=== PATIENT | female | born 1995 | race American Indian/Alaskan Native ===

== ENCOUNTER 2021-03-20 22:14 | Emergency (ER) | payer OTHER, MEDICAID ==
[2021-03-21 00:03] VITALS: BP 106/78
[2021-03-21] MEDS ORDERED: ACETAMINOPHEN 500 MG TAB PO ONE (00:08)
[2021-03-21] MEDS ORDERED: IBUPROFEN 600 MG TAB PO ONE (00:08)
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
== END 2021-03-21 01:37 | disposition home or self-care (01) ==
LOC: ED 22:14
DX: S29.012A Strain of muscle and tendon of back wall of thorax, initial encounter (principal); M62.830 Muscle spasm of back; M54.5 Low back pain; Z79.899 Other long term (current) drug therapy; V89.2XXA Person injured in unspecified motor-vehicle accident, traffic, initial encounter; Y93.89 Activity, other specified; Y92.488 Other paved roadways as the place of occurrence of the external cause; Y99.8 Other external cause status
CPT/HCPCS: 72070; 72100; 99283